=== PATIENT | female | born 1980 ===

== ENCOUNTER 2021-11-20 09:30 | Outpatient (REF) | payer OTHER, SELFPAY ==
[2021-11-20 10:34] LABS: Hematocrit 42.9 % (37.0-47.0); Hemoglobin 14.3 g/dl (12.0-16.0); Mean Corpuscular HGB Conc 33.3 g/dl (31.0-35.0); Mean Corpuscular Hemoglobin 30.5 pg (27.0-33.0); Mean Corpuscular Volume 91.5 fL (80.0-98.0); Mean Platelet Volume 10.1 fL (9.4-12.3); Platelet Count 257 X10*3/uL (160-400); Red Blood Count 4.69 X10*6/uL (4.20-5.50); Red Cell Distribution Width 12.1 % (11.0-16.0); White Blood Count 5.2 X10*3/uL (4.8-10.8)
[2021-11-20 10:55] LABS: Alanine Aminotransferase 20 U/L (0-31); Albumin Level 4.3 g/dL (3.5-5.0); Alkaline Phosphatase 63 U/L (39-117); Anion Gap 9 (12-20); Aspartate Amino Transferase 19 U/L (5-31); Bilirubin Direct 0.2 mg/dL (0.0-0.5); Bilirubin Total 0.4 mg/dL (0.0-1.0); Blood Urea Nitrogen 11 mg/dL (9-16); Calcium 9.6 mg/dL (8.4-10.2); Carbon Dioxide 30 mmol/L (22-29); Chloride 103 mmol/L (96-108); Cholesterol 211 mg/dL; Estimated Glomerular Filt Rate > 60; Glucose Random 99 mg/dL (60-115); HDL Cholesterol 52 mg/dL; LDL Cholesterol Calculated 143 mg/dl; Potassium 4.4 mmol/L (3.3-5.1); Sodium 138 mmol/L (135-145); Triglycerides 83 mg/dL
== END 2021-11-20 09:31 | disposition home or self-care (01) ==
LOC: HO.10HDL 09:30
PROVIDERS: Visit Provider Internal Medicine
DX: K21.9 Gastro-esophageal reflux disease without esophagitis (principal)
CPT/HCPCS: 36415; 80048; 80061; 80076; 85027

== ENCOUNTER 2021-12-20 13:41 | Outpatient (REF) | payer OTHER, SELFPAY ==
--- NOTE | ~2021-12-20 | MM_ITS ---
EXAMINATION: MM SCREENING DIGITAL BREAST TOMOSYNTHESIS, BILATERAL CLINICAL INFORMATION: Screening. Asymptomatic. The lifetime risk of breast cancer based on the Tyrer-Cuzick Model is 15.1%. COMPARISON: Mammography: None TECHNIQUE: Digital breast tomosynthesis is performed in both the craniocaudal and mediolateral oblique views along with computer-aided detection (CAD). Synthesized 2D images are generated from the tomosynthesis. FINDINGS: The breasts are heterogeneously dense, which may obscure small masses (ACR BI-RADS breast composition Category c). There are no significant masses, abnormal calcifications, or other abnormalities. MM/MM tomosynthesis screening BI IMPRESSION: No mammographic evidence of malignancy. ASSESSMENT: BI-RADS 1: Negative RECOMMENDATION: Routine annual mammography screening. This patient's information was entered into a reminder system with a target due date for their next mammogram.
== END 2021-12-20 13:42 | disposition home or self-care (01) ==
LOC: HO.MAMMO 13:41
PROVIDERS: Visit Provider Internal Medicine
DX: Z12.31 Encounter for screening mammogram for malignant neoplasm of breast (principal)
CPT/HCPCS: 77063; 77067

== ENCOUNTER → 2022-12-08 12:56 | Outpatient (REF) | payer OTHER, SELFPAY ==
--- NOTE | 2022-12-08 13:00 | HM_ITS ---
* Total monitoring time 2 days. * Underlying rhythm is sinus. Average ventricular rate 70/Min. Range 47 to 103/Min. * No significant ectopy, tachy or Catrachito arrhythmias. * Patient markers used in association sinus rhythm. Chest discomfort, palpitations, skipping, correlate with sinus rhythm. MTDD
== END ==
LOC: HO.CARD 12:56
PROVIDERS: PCP Internal Medicine; Visit Provider Internal Medicine
DX: R00.2 Palpitations (principal)
CPT/HCPCS: 93225

== ENCOUNTER 2023-01-01 17:15 | Outpatient (REF) | payer OTHER, SELFPAY ==
[2023-01-01 18:31] LABS: Influenza A PCR NEGATIVE (Negative); Influenza B PCR NEGATIVE (Negative); Resp Syncy Virus RNA Qual PCR NEGATIVE (Negative); SARS COV2 PCR INHOUSE NEGATIVE (Negative)
== END 2023-01-01 17:16 | disposition home or self-care (01) ==
LOC: HO.LNP 17:15
PROVIDERS: Visit Provider Nurse Practitioner Family
DX: R09.89 Other specified symptoms and signs involving the circulatory and respiratory systems (principal); Z20.822 Contact with and (suspected) exposure to COVID-19
CPT/HCPCS: 0241U

== ENCOUNTER 2023-02-10 13:59 | Outpatient (REF) | payer OTHER, SELFPAY ==
[2023-02-11 06:41] LABS: CT PCR NOT DETECTED (Not Detect.); NG PCR NOT DETECTED (Not Detect.)
[2023-02-11 12:36] LABS: BV Int Neg Control Negative (Negative); BV Int Pos Control Positive (Positive)
[2023-02-13 04:18] LABS: HPV mRNA E6/E7 rflx Not Detected (Not Detected)
== END 2023-02-10 14:00 | disposition home or self-care (01) ==
LOC: HO.LNP 13:59
PROVIDERS: PCP Internal Medicine; Visit Provider Advanced Practice Midwife
DX: Z01.419 Encounter for gynecological examination (general) (routine) without abnormal findings (principal); Z11.51 Encounter for screening for human papillomavirus (HPV); E66.3 Overweight; L68.0 Hirsutism; N92.1 Excessive and frequent menstruation with irregular cycle; Z20.2 Contact with and (suspected) exposure to infections with a predominantly sexual mode of transmission
CPT/HCPCS: 0353U; 87480; 87510; 87624; 87660; 88142

== ENCOUNTER 2023-02-27 11:12 | Outpatient (REF) | payer OTHER, SELFPAY ==
[2023-02-27 11:48] LABS: Hematocrit 44.2 % (37.0-47.0); Hemoglobin 14.9 g/dl (12.0-16.0); Mean Corpuscular HGB Conc 33.7 g/dl (31.0-35.0); Mean Corpuscular Hemoglobin 31.6 pg (27.0-33.0); Mean Corpuscular Volume 93.6 fL (80.0-98.0); Mean Platelet Volume 9.8 fL (9.4-12.3); Platelet Count 265 X10*3/uL (160-400); Red Blood Count 4.72 X10*6/uL (4.20-5.50); Red Cell Distribution Width 12.4 % (11.0-16.0); White Blood Count 6.1 X10*3/uL (4.8-10.8)
[2023-02-27 12:30] LABS: Alanine Aminotransferase 39 U/L (0-31); Albumin Level 4.5 g/dL (3.5-5.0); Alkaline Phosphatase 52 U/L (39-117); Anion Gap 12 (12-20); Aspartate Amino Transferase 23 U/L (5-31); Bilirubin Direct 0.2 mg/dL (0.0-0.5); Bilirubin Total 0.8 mg/dL (0.0-1.0); Blood Urea Nitrogen 9 mg/dL (9-16); Calcium 9.8 mg/dL (8.4-10.2); Carbon Dioxide 29 mmol/L (22-29); Chloride 105 mmol/L (96-108); Cholesterol 220 mg/dL; Estimated Glomerular Filt Rate > 60; Glucose Random 92 mg/dL (60-115); HDL Cholesterol 52 mg/dL; LDL Cholesterol Calculated 141 mg/dl; Potassium 4.3 mmol/L (3.3-5.1); Sodium 142 mmol/L (135-145); Total Protein 7.2 g/dL (6.5-8.0); Triglycerides 136 mg/dL
[2023-02-27 12:32] LABS: Appearance Urine Clear; Color Urine Dark Yellow; Glucose Urine UA Negative (Negative); Leukocyte Esterase Urine Trace (Negative); Nitrite Urine Negative (Negative); PH 6.5 (5.0-9.0); Specific Gravity - Urine >= 1.030 (1.005-1.025); UMIC TRIGGER UA YES; Urine Blood Small (1+) (Negative); Urine Ketones Trace mg/dL (Negative); Urine Protein Trace mg/dL (Neg-Trace)
[2023-02-27 12:36] LABS: Bacteria Urine Trace (None Seen); RBC Urine >20 /HPF (0-2); WBC Urine 0-5 /HPF (0-5)
[2023-02-27 12:49] LABS: Thyroid Stimulating Hormone 0.81 uIU/mL (0.32-4.0)
== END 2023-02-27 11:13 | disposition home or self-care (01) ==
LOC: HO.LAB 11:12
PROVIDERS: PCP Internal Medicine; Visit Provider Internal Medicine
DX: K21.9 Gastro-esophageal reflux disease without esophagitis (principal); F41.1 Generalized anxiety disorder; E78.00 Pure hypercholesterolemia, unspecified
CPT/HCPCS: 36415; 80048; 80061; 80076; 81001; 84443; 85027

== ENCOUNTER 2023-03-13 15:20 | Outpatient (REF) | payer OTHER, SELFPAY ==
--- NOTE | ~2023-03-13 | MM_ITS ---
EXAMINATION: MM SCREENING DIGITAL BREAST TOMOSYNTHESIS, BILATERAL CLINICAL INFORMATION: Screening. Asymptomatic. Family history breast cancer, mother. The lifetime risk of breast cancer based on the Tyrer-Cuzick Model is 15%. COMPARISON: Mammography: 12/20/2021 (baseline). TECHNIQUE: Digital breast tomosynthesis is performed in both the craniocaudal and mediolateral oblique views along with computer-aided detection (CAD). Synthesized 2D images are generated from the tomosynthesis. FINDINGS: The breasts are heterogeneously dense, which may obscure small masses (ACR BI-RADS breast composition Category c). Parenchymal pattern is similar to baseline exam and there is no developing density or architectural abnormality. No abnormal breast parenchymal calcifications. The skin contours are smooth. The axillary nodes appear normal in size. There is a left axillary node with numerous high attenuation punctate foci, either calcifications or tattoo pigment. Patient will be recalled for further evaluation with targeted ultrasound axilla. MM/MM tomosynthesis screening BI IMPRESSION: Left: -Numerous punctate high attenuation foci left axillary node, calcification versus tattoo pigment. Right: -No mammographic evidence of malignancy. ASSESSMENT: BI-RADS 0: Incomplete - Need Additional Imaging Evaluation RECOMMENDATION: 1. Targeted ultrasound left axilla. 2. Radiology department staff will contact the patient for additional imaging. This patient's information was entered into a reminder system with a target due date for their next mammogram.
== END 2023-03-13 15:21 | disposition home or self-care (01) ==
LOC: HO.MAMMO 15:20
PROVIDERS: PCP Internal Medicine; Visit Provider Advanced Practice Midwife
DX: Z12.31 Encounter for screening mammogram for malignant neoplasm of breast (principal)
CPT/HCPCS: 77063; 77067

== ENCOUNTER 2023-03-20 14:06 | Outpatient (REF) | payer OTHER, SELFPAY ==
--- NOTE | ~2023-03-20 | US_ITS ---
EXAMINATION: US DIAGNOSTIC ULTRASOUND BREAST, LEFT CLINICAL INFORMATION: Recall from screening mammography for punctate high attenuation foci left axillary node, calcification versus tattoo pigment. COMPARISON: Mammography 03/13/2023, 12/20/2021 (baseline). TECHNIQUE: Ultrasound of the upper outer left breast and axillary is performed using grayscale imaging and color Doppler without and with harmonics. FINDINGS: There is no lymphadenopathy. Axillary nodes appear normal in ultrasound architecture. Normal color flow. The upper outer left breast shows no cystic or solid mass or architectural abnormality. Patient has numerous tattoos left upper extremity. The hypoattenuation foci within otherwise unremarkable left axillary node is believed to be related to tattoo pigment. Results are discussed with the patient at time of visit. US/US breast LT limited IMPRESSION: - Normal-appearing axillary nodes. No lymphadenopathy. -There are multiple tattoos left upper extremity, left axillary node likely has tattoo pigment. ASSESSMENT: BI-RADS 2: Benign RECOMMENDATION: Routine annual mammography screening. This patient's information was entered into a reminder system with a target due date for their next mammogram.
== END 2023-03-20 14:07 | disposition home or self-care (01) ==
LOC: HO.MAMMO 14:06
PROVIDERS: Visit Provider Advanced Practice Midwife
DX: N63.32 Unspecified lump in axillary tail of the left breast (principal)
CPT/HCPCS: 76642

== ENCOUNTER 2023-04-08 16:03 | Outpatient (REF) | payer OTHER, SELFPAY | END 2023-04-08 16:04 | disposition home or self-care (01) | LOC: HO.LAB 16:03 | PROVIDERS: Visit Provider Internal Medicine | DX: R39.9 Unspecified symptoms and signs involving the genitourinary system (principal) | CPT/HCPCS: 81001; 87086; 87088; 87186 ==

== ENCOUNTER 2023-08-17 10:03 | Outpatient (AMB) | payer OTHER, SELFPAY ==
[2023-08-17 12:50] VITALS: BP 118/72; PULSE 72; O2SAT 97; BMI 29.8
--- NOTE | 2023-08-17 12:50 | MHC.OFFWIV ---
Intake Vital Signs 08/17/23 12:50 Height 5 ft 2.5 in Weight 165 lb 8 oz BMI 29.8 BP 118/72 Blood Pressure Location Rt brachial Position Sitting Pulse 72 Pulse Source Pulse Oximeter Pulse Oximetry (%) 97 Oxygen Delivery Method Room Air Intake Visit Reasons: EST/ongoing cough/[phone] Intake Note: pt is here for c/o ongoing cough, also pt has a sore throat Patient Tobacco Use Status: Current everyday Tobacco user Allergies hydrocodone [From VICODIN] Allergy (Unknown, Verified 08/17/23 13:27) NAUSEA & VOMITING quetiapine Adverse Reaction (Intermediate, Verified 08/17/23 13:27) sucide attempt Vicodin Allergy (Unknown, Uncoded 08/17/23 13:27) vomiting,nausea Medication List - Last Reconciled 08/17/23 by Sanjay Zavala MD budesonide-formoterol 80-4.5 mcg/actuation 2 puffs PO BID clonazepam 0.5 mg PO BEDTIME hydroxyzine HCl 25 mg PO DAILY PRN nicotine (polacrilex) (Nicorette) 2 mg buccal Q2H omeprazole 20 mg PO DAILY paroxetine HCl 10 mg PO QAM permethrin 5% 1 appl topical Q14D 2 doses Do you need a note to return to daycare/school/sports/work: Yes HPI EST/ongoing cough/[phone] HPI Details Patient presents for a sick visit. Reporting symptoms of sinus congestion, sore throat and difficulty swallowing. Low-grade fever. No family member is sick. No recent travel. Patient reports symptoms of malaise and fatigue. [facility] Medical History Panic attacks Anxiety Depression GERD (gastroesophageal reflux disease) Surgical History No history of previous surgery Family History Mother History of breast lump removal Breast cancer Father No problems noted. 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 Hearing needs: No Vision needs: Yes (glasses) Physical Exam Vital Signs: Last Vital Signs Pulse 72 08/17/23 12:50 BP 118/72 08/17/23 12:50 Pulse Ox 97 08/17/23 12:50 Oxygen Delivery Method Room Air 08/17/23 12:50 BMI result Body Mass Index 29.8 Const General: cooperative and healthy appearing Nutritional Appearance: well nourished Orientation/consciousness: patient oriented x3 Limitations: no limitations HEENT Head: Yes normal to inspection Eyes General: appearance normal, both eyes and all related structures Neck Neck: Yes normal visual inspection Chest Chest palpation & inspection: normal palpation of entire chest wall Resp Effort & Inspection: normal respiratory effort Neuro General: patient oriented x3 Assessment & Plan Assessment & Plan (1) URI (upper respiratory infection): Code(s): J06.9 - Acute upper respiratory infection, unspecified Plan: Antibiotics, prednisone and inhalers to be used. Patient already has the inhalers at home. Increase fluid intake. Coding Level of Care Code Est Pt Level 3 (89479) Diagnoses URI (upper respiratory infection) J06.9
== END 2023-08-17 13:50 | disposition home or self-care (01) ==
PROVIDERS: PCP Internal Medicine; Visit Provider Internal Medicine
DX: J06.9 Acute upper respiratory infection, unspecified (principal)
CPT/HCPCS: 99213

== ENCOUNTER 2024-03-15 14:43 | Outpatient (AMB) | payer OTHER, SELFPAY ==
--- NOTE | 2024-03-15 14:55 | MHC.PC.OV ---
Vital Signs 03/15/24 14:57 Height 5 ft 2.5 in Weight 166 lb 6 oz BMI 29.9 BP 132/66 Blood Pressure Location Lt brachial Position Sitting Pulse 60 Pulse Source Pulse Oximeter Pulse Oximetry (%) 100 Oxygen Delivery Method Room Air Intake Visit Reasons: Depression, BRENDAN f/u Intake Note: Patient is here to follow up on Depression, BRENDAN. Outcomes Specialist Required: No Makeup Editor: Not Required per policy Accompanied by: Self / Same As Patient Allergies hydrocodone [From VICODIN] Allergy (Unknown, Verified 03/15/24 14:57) NAUSEA & VOMITING quetiapine Adverse Reaction (Intermediate, Verified 03/15/24 14:57) sucide attempt Vicodin Allergy (Unknown, Uncoded 03/15/24 14:57) vomiting,nausea Tobacco use date assessed: 03/15/24 Dental Screening Dental Screen Date: 03/15/24 Did you have a dental visit in the last 12 months?: Yes Did you have a dental problem in the last 6 months where you did not have access to dental care?: No Was dental information given to patient?: Patient has dentist HPI Depression, BRENDAN f/u HPI Details 44-year-old female presents to the office to reestablish her care. Patient lost her health insurance and as a result, has been a long gap in her treatment. She was feeling better and therefore had tapered her paroxetine dosage to 10 mg once a day. Now patient is feeling depressed, difficulty falling asleep at night, excessive fatigue. She is agreed to see a therapist. Patient also has a regular menstruation. She is having hair on her chin. Not exercising or following any particular diet. [facility] Medical History (Updated 03/15/24 @ 15:48 by Sanjay Zavala MD) Tobacco use disorder Panic attacks Anxiety Depression GERD (gastroesophageal reflux disease) Surgical History No history of previous surgery Family History Mother History of breast lump removal Breast cancer Father No problems noted. 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 1. Little interest or pleasure in doing things: nearly every day 2. Feeling down, depressed, or hopeless: nearly every day 3. Trouble falling or staying asleep, or sleeping too much: nearly every day 4. Feeling tired or having little energy: nearly every day 5. Poor appetite or overeating: more than half the days 6. Feeling bad about yourself - or that you are a failure or have let yourself or your family down: nearly every day 7. Trouble concentrating on things, such as reading the newspaper or watching television: nearly every day 8. Moving or speaking so slowly that other people could have noticed. Or the opposite - being so fidgety or restless that you have been moving around a lot more than usual: not at all 9. Thoughts that you would be better off or of hurting yourself in some way: more than half the days Total score: 22 Depression Screening Interpretation: Positive Depression Screening Follow-up: Existing condition, New Medication prescribed and Community Mental Health Worker F/U Depression Screening Done: Yes Source: Developed by Drs. Eliseo Castro, Karen Wallace, Sivakumar Marques and colleagues, with an educational alan from [employer]. Thrive Questionnaire Date Thrive assessed: 03/15/24 I am a: Patient What is your living situation today?: I have a steady place to live Within the past 12 months, did the food you bought not last and you didn't have the money to get more?: Never true Within the past 12 months, did you worry whether your food would run out before you got money to buy more?: Never true Do you have trouble paying for medicines?: No Do you have trouble getting transportation to medical appointments?: No Do you have trouble paying your heating and electricity bill?: No Do you have trouble taking care of your child, family member or friend?: No Do you have trouble with day-to-day activities such as bathing, preparing meals, shopping, managing finances, etc.?: No Are you currently unemployed and looking for a job?: No Are you interested in more education?: No Currently or been in a relationship where the following occur: no concerns reported THRIVE Score: 0 AUDIT C Alcohol Use Questionnaire (AUDIT-C) 1. How often do you have a drink containing alcohol?: Monthly or less 2. How many drinks containing alcohol do you have on a typical day when you are drinking?: 1 or 2 Total Score: 1 BRENDAN-7 AMB Questionnaire BRENDAN-7 Date BRENDAN - 7 assessed: 03/15/24 Feeling nervous, anxious, or on edge: 3 = Nearly every day Not being able to stop or control worryin = Nearly every day Worrying too much about different things: 3 = Nearly every day Trouble relaxin = Nearly every day Being so restless that it is hard to sit still: 3 = Nearly every day Becoming easily annoyed or irritable: 1 = Several days Feeling afraid as if something awful might happen: 3 = Nearly every day Total BRENDAN-7 score (0-4 normal; 5-9 mild; 10-14 moderate; 15-21 severe): 19 Source: Developed by Drs. Eliseo Castro, Karen Wallace, Sivakumar Marques and colleagues, with an educational alan from [employer]. Physical exam (Primary Care) Vital Signs: Last Vital Signs Pulse 60 03/15/24 14:57 BP 132/66 03/15/24 14:57 Pulse Ox 100 03/15/24 14:57 Oxygen Delivery Method Room Air 03/15/24 14:57 Next steps: Blood pressure is in range. BMI result Body Mass Index 29.9 Tobacco/Smoking Status: Tobacco use Status Tobacco use date assessed 03/15/24 03/15/24 15:05 Patient Tobacco Use Status Current everyday Tobacco 03/15/24 15:05 Tobacco use type Cigarette 03/15/24 15:05 e-Cigarette/Vaping Use Never Used 03/15/24 15:05 Are you ready to quit: No PHQ-9: PHQ-9 Score PHQ-9: Total score 22 03/15/24 15:05 Depression Screening Interpretation: Positive Depression Screening Follow-up: Existing condition, New Medication prescribed and Community Mental Health Worker F/U Thrive Assessment: Date of Thrive Assessment Date Thrive assessed 03/15/24 03/15/24 15:05 Currently or been in a relationship where the following occur: no concerns reported Const General: cooperative and healthy appearing Nutritional Appearance: well nourished Orientation/consciousness: patient oriented x3 Limitations: no limitations HENMT Head: Yes normal to inspection Eyes General: appearance normal, both eyes and all related structures Neck Neck: Yes normal visual inspection Chest Chest palpation & inspection: normal palpation of entire chest wall Resp Effort & Inspection: normal respiratory effort Skin Other: Face: Facial hair present, especially near the chin. Neuro General: patient oriented x3 Assessment and Plan Assessment & Plan (1) Depression: Code(s): F32.A - Depression, unspecified Qualifiers: Depression Type: other depression Qualified Code(s): F32.89 - Other specified depressive episodes Plan: Paxil is increased to 20 mg once a day. Clonazepam has been added once a day. Patient will be reassessed in 4 weeks. (2) Excessive menstruation with irregular cycle: Code(s): N92.1 - Excessive and frequent menstruation with irregular cycle Plan: In view of her hirsuite symptoms, irregular menstruation PCOS needs to be ruled out. A inside sales consultant appointment has been scheduled. (3) Tobacco use disorder: Code(s): F17.200 - Nicotine dependence, unspecified, uncomplicated Plan: Patient was encouraged to quit. Medications: Refilled clonazepam administer 30 minutes before bedtime 0.5 mg PO BEDTIME 30 tabs 0RF paroxetine HCl 10 mg PO QAM 90 tabs 0RF Coding Level of Care Code Est Pt Level 4 (80796) Complex EM visit Add On G2211 Diagnoses Other depression F32.89 Depression Type: other depression Excessive menstruation with irregular cycle N92.1 Tobacco use disorder F17.200
[2024-03-15 14:57] VITALS: BP 132/66; PULSE 60; O2SAT 100; BMI 29.9
== END 2024-03-15 15:49 | disposition home or self-care (01) ==
PROVIDERS: PCP Internal Medicine; Visit Provider Internal Medicine
DX: F32.89 Other specified depressive episodes (principal); N92.1 Excessive and frequent menstruation with irregular cycle; F17.200 Nicotine dependence, unspecified, uncomplicated
CPT/HCPCS: 99214; G2211

== ENCOUNTER 2024-03-18 15:25 | Outpatient (REF) | payer OTHER, SELFPAY ==
--- NOTE | ~2024-03-18 | MM_ITS ---
EXAMINATION: MM SCREENING DIGITAL BREAST TOMOSYNTHESIS, BILATERAL CLINICAL INFORMATION: Screening. Asymptomatic. COMPARISON: Mammography: This study is compared with prior exams dating back to 2021. TECHNIQUE: Digital breast tomosynthesis is performed in both the craniocaudal and mediolateral oblique views along with computer-aided detection (CAD). Synthesized 2D images are generated from the tomosynthesis. FINDINGS: The breasts are heterogeneously dense, which may obscure small masses (ACR BI-RADS breast composition Category c). There are no significant masses, abnormal calcifications, or other abnormalities. MM/MM tomosynthesis screening BI IMPRESSION: No mammographic evidence of malignancy. ASSESSMENT: BI-RADS BI-RADS 1 - Negative RECOMMENDATION: Routine annual mammography screening. 1 year F/U This examination should not preclude the clinical evaluation of a suspicious palpable abnormality. This patient's information was entered into a reminder system with a target due date for their next mammogram.
== END 2024-03-18 15:26 | disposition home or self-care (01) ==
LOC: HO.MAMMO 15:25
PROVIDERS: PCP Internal Medicine; Visit Provider Internal Medicine
DX: Z12.31 Encounter for screening mammogram for malignant neoplasm of breast (principal)
CPT/HCPCS: 77063; 77067

== ENCOUNTER → 2024-03-18 15:30 | Outpatient (BNV) | payer OTHER, SELFPAY | PROVIDERS: PCP Internal Medicine; Visit Provider Radiology Diagnostic Radiology | DX: Z12.31 Encounter for screening mammogram for malignant neoplasm of breast (principal) | CPT/HCPCS: 77063; 77067 ==

== ENCOUNTER 2024-05-02 09:55 | Outpatient (REF) | payer OTHER, SELFPAY | END 2024-05-02 09:56 | disposition home or self-care (01) | LOC: HO.LNP 09:55 | PROVIDERS: PCP Internal Medicine; Visit Provider Obstetrics & Gynecology | DX: N93.9 Abnormal uterine and vaginal bleeding, unspecified (principal); L68.0 Hirsutism | CPT/HCPCS: 81002; 81025 ==

== ENCOUNTER 2024-05-02 09:55 | Outpatient (AMB) | payer OTHER, SELFPAY ==
--- NOTE | 2024-05-02 10:04 | A.OFFVIS_ITS ---
Vital Signs 05/02/24 10:05 Height 5 ft 2.5 in Weight 159 lb BMI 28.6 Intake Visit Reasons: frequent menses w/irregular cycle/Referral Shearing Machine Operator Required: No Information Interpreted: non-clinical & clinical Differential Tester: Differential Tester Present (Leana TEMPLETON) Accompanied by: Self / Same As Patient Allergies hydrocodone [From VICODIN] Allergy (Unknown, Verified 05/02/24 10:10) NAUSEA & VOMITING quetiapine Adverse Reaction (Intermediate, Verified 05/02/24 10:10) sucide attempt Vicodin Allergy (Unknown, Uncoded 05/02/24 10:10) vomiting,nausea Is last menstrual period known: Yes Last menstrual period: 04/12/24 HPI Comments Details: The patient is presenting c/o irregular bleeding associated with passage of blood clots and abdominal cramping. it started few months ago and is getting worse no other associated symptoms. Last co testing was negative in 02/24 Last mammogram was in 03/28 was BI-RADS 1 [facility] Medical History Hx of Tobacco use disorder Panic attacks Anxiety Depression GERD (gastroesophageal reflux disease) Surgical History No history of previous surgery Family History Mother History of breast lump removal Breast cancer Father No problems noted. 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 Hearing needs: No Vision needs: Yes (glasses) Female Reproductive History Menstrual Date of last menstrual period: 04/12/24 Total pregnancies: 2 Full term: 1 Number of Living Children: 1 Review of Systems Const All systems reviewed & are unremarkable except as noted in HPI and below Card Reports as per HPI Resp Reports as per HPI GI Reports as per HPI and Reports no additional complaints Reports as per HPI Physical Exam Vital Signs: BMI result Body Mass Index 28.6 Const General: cooperative, healthy appearing and comfortable Chest Chest palpation & inspection: normal inspection of the chest and normal palpation of entire chest wall Breast/axilla inspection: normal inspection of the breasts and normal inspection of the axillae Breast/axilla palpation: normal palpation of the breasts, normal palpation of the axillae and no axillary lymphadenopathy Resp Effort & Inspection: normal respiratory effort Auscultation: clear to auscultation bilaterally Percussion: percussion normal Cardio Palpation: normal PMI Rate: regular rate Rhythm: regular rhythm Heart sounds: no murmurs and no rubs Peripheral pulses: Peripheral pulses 2+ throughout GI Inspection: Yes normal to inspection Palpation (GI): Soft to palpation, nontender, no guarding, not rigid and No hepatosplenomegaly present Percussion: Yes normal to percussion Auscultation: normal bowel sounds Rectal Exam - Female: deferred General: Yes bladder normal to palpation External Female Exam: No lesion Speculum Exam - Vagina: normal appearance of the vagina, normal palpation, normal vaginal discharge and not erythematous Speculum Exam - Cervix: normal appearance of the cervix and normal palpation Bimanual exam- vagina & uterus: normal bimanual exam, normal palpation, uterine size normal, bladder normal to palpation, consistency normal and normal palpation Bimanual Exam- Adnexa, other: normal adnexae, no masses and no tenderness Assessment & Plan Assessment & Plan (1) Abnormal uterine bleeding (AUB): Comment: With hirsutism Code(s): N93.9 - Abnormal uterine and vaginal bleeding, unspecified Category: Medical Plan: GC and chlamydia taken CBC, TSH, prolactin, 17 hydroxyprogesterone, total and free testosterone HCG, and pelvic ultrasound ordered. Discussed with the patient the different causes of abnormal bleeding including thyroid disorders, uterine and ovarian pathology, endometrial hyperplasia, carcinoma and other potential causes. Discussed with the patient the work up including CBC (to r/o anemia), TSH, prolactin, pelvic Ultrasound, endometrial biopsy to r/o endometrial pathology. All questions answered and the patient verbalized understanding. Instructed the patient to schedule an appointment for an endometrial biopsy in 2 weeks. Orders: Orders HCG Quantitative Today N93.9 - Abnormal uterine and vaginal bleeding, unspecified Complete Blood Count no Diff Today N93.9 - Abnormal uterine and vaginal bleeding, unspecified US pelvic and transvaginal Today N93.9 - Abnormal uterine and vaginal bleeding, unspecified Testosterone, Free/Total Today L68.0 - Hirsutism Prolactin Today N93.9 - Abnormal uterine and vaginal bleeding, unspecified TSH reflex Free T4 Today N93.9 - Abnormal uterine and vaginal bleeding, unspecified 17 Hydroxyprogesterone Today L68.0 - Hirsutism Coding Level of Care Code Est Pt Level 3 (91839) Diagnoses Abnormal uterine bleeding (AUB) N93.9
[2024-05-02 10:05] VITALS: BMI 28.6
== END 2024-05-02 11:01 | disposition home or self-care (01) ==
PROVIDERS: PCP Internal Medicine; Visit Provider Obstetrics & Gynecology
DX: N93.9 Abnormal uterine and vaginal bleeding, unspecified (principal); Z32.02 Encounter for pregnancy test, result negative
CPT/HCPCS: 99213

== ENCOUNTER 2024-05-02 10:47 | Outpatient (REF) | payer OTHER, SELFPAY ==
[2024-05-02 11:19] LABS: Hematocrit 42.2 % (37.0-47.0); Hemoglobin 14.5 g/dl (12.0-16.0); Mean Corpuscular HGB Conc 34.4 g/dl (31.0-35.0); Mean Corpuscular Hemoglobin 31.4 pg (27.0-33.0); Mean Corpuscular Volume 91.3 fL (80.0-98.0); Mean Platelet Volume 9.6 fL (9.4-12.3); Platelet Count 267 X10*3/uL (160-400); Red Blood Count 4.62 X10*6/uL (4.20-5.50); Red Cell Distribution Width 12.6 % (11.0-16.0); White Blood Count 6.5 X10*3/uL (4.8-10.8)
[2024-05-02 12:44] LABS: HCG Quantitative < 2 mIU/mL; TSH reflex Free T4 1.51 uIU/mL (0.32-4.0)
[2024-05-03 05:25] LABS: CT PCR NOT DETECTED (Not Detect.); NG PCR NOT DETECTED (Not Detect.)
[2024-05-03 14:12] LABS: Prolactin 11.8 ng/mL
[2024-05-07 20:39] LABS: Testosterone, Free 2.8 pg/mL (0.1-6.4); Testosterone, Total 23 ng/dL (2-45)
== END 2024-05-02 10:48 | disposition home or self-care (01) ==
LOC: HO.LAB 10:47
PROVIDERS: PCP Internal Medicine; Visit Provider Obstetrics & Gynecology
DX: N93.9 Abnormal uterine and vaginal bleeding, unspecified (principal); L68.0 Hirsutism; R82.79 Other abnormal findings on microbiological examination of urine
CPT/HCPCS: 36415; 83498; 84146; 84402; 84403; 84443; 84702; 85027; 87086; 87088; 87186; 87491; 87591

== ENCOUNTER 2024-05-06 13:14 | Outpatient (REF) | payer OTHER, SELFPAY ==
--- NOTE | ~2024-05-06 | US_ITS ---
EXAMINATION: US PELVIS CLINICAL INFORMATION: Abnormal bleeding. COMPARISON: None available. TECHNIQUE: Ultrasound of the pelvis is performed using both transabdominal and transvaginal transducers along with Doppler. Transvaginal imaging is performed due to inadequate visualization transabdominally. FINDINGS: The uterus is anteverted and measures 9.1 x 6.0 x 6.2 cm. Double wall endometrial thickness is 19 mm. Possible endometrial polyp measures 1.7 x 0.6 x 0.8 cm. Nabothian cysts. No significant free fluid. Right ovary measures 3.0 x 2.4 x 1.8 cm, volume 6.6 mL. Left ovary measures 3.4 x 1.4 x 2.3 cm, volume 5.6 mL. Bilateral ovaries are unremarkable. US/US pelvic and transvaginal IMPRESSION: Possible endometrial polyp measures 1.7 cm. Double wall endometrial thickness is 19 mm. Gynecologic consultation and correlation with clinical exam recommended to determine further management including possible biopsy.
== END 2024-05-06 13:15 | disposition home or self-care (01) ==
LOC: HO.US 13:14
PROVIDERS: PCP Internal Medicine; Visit Provider Obstetrics & Gynecology
DX: N93.9 Abnormal uterine and vaginal bleeding, unspecified (principal)
CPT/HCPCS: 76830; 76856

== ENCOUNTER 2024-05-11 15:32 | Outpatient (AMB) | payer OTHER, SELFPAY ==
[2024-05-11 15:40] VITALS: BP 116/70; PULSE 61; O2SAT 98; BMI 29.2
--- NOTE | 2024-05-11 15:40 | A.OFFPC_ITS ---
Vital Signs 05/11/24 15:40 Height 5 ft 2.5 in Weight 162 lb 0.2 oz BMI 29.2 BP 116/70 Blood Pressure Location Lt brachial Position Sitting Pulse 61 Pulse Source Pulse Oximeter Pulse Oximetry (%) 98 Oxygen Delivery Method Room Air Intake Visit Reasons: 1mof\u Fashion Buyer Required: No Allergies hydrocodone [From VICODIN] Allergy (Unknown, Verified 05/17/24 11:03) NAUSEA & VOMITING quetiapine Adverse Reaction (Intermediate, Verified 05/17/24 11:03) sucide attempt Vicodin Allergy (Unknown, Uncoded 05/17/24 11:03) vomiting,nausea Medication List - Last Reconciled 05/17/24 by Sanjay Zavala MD aripiprazole (Abilify) 2 mg PO BEDTIME budesonide-formoterol 80-4.5 mcg/actuation 2 puffs PO BID clonazepam 0.5 mg PO BEDTIME omeprazole 20 mg PO DAILY paroxetine HCl 20 mg PO DAILY Tobacco use date assessed: 03/15/24 Dental Screening Dental Screen Date: 03/15/24 Did you have a dental visit in the last 12 months?: Yes Did you have a dental problem in the last 6 months where you did not have access to dental care?: No Was dental information given to patient?: Patient has dentist HPI 1mof\u HPI Details 44-year-old female presents to the [facility] for a follow-up visit. Patient is had some relief with the Wellbutrin. Her anxiety symptoms are a little better. However she continues to be distracted, crying spells are still present. She is being evicted from her apartment and has missed out on a promotion. Patient has dogs and therefore is not able to rent apartments easily. She is not exercising or following any particular diet. [facility] Medical History Hx of Tobacco use disorder Panic attacks Anxiety Depression GERD (gastroesophageal reflux disease) Surgical History No history of previous surgery Family History Mother History of breast lump removal Breast cancer Father No problems noted. 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 How often do you have a drink containing alcohol?: Monthly or less 2. How many drinks containing alcohol do you have on a typical day when you are drinking?: 1 or 2 Total Score: 1 BRENDAN-7 AMB Questionnaire BRENDAN-7 Date BRENDAN - 7 assessed: 03/15/24 Source: Developed by Drs. Eliseo Castro, Karen Wallace, Sivakumar Marques and colleagues, with an educational alan from [employer]. Physical exam (Primary Care) Vital Signs: Last Vital Signs Pulse 61 05/11/24 15:40 BP 116/70 05/11/24 15:40 Pulse Ox 98 05/11/24 15:40 Oxygen Delivery Method Room Air 05/11/24 15:40 BMI result Body Mass Index 29.2 Tobacco/Smoking Status: Tobacco use Status Tobacco use date assessed 03/15/24 05/11/24 15:42 Patient Tobacco Use Status Current everyday Tobacco 05/11/24 15:42 Tobacco use type Cigarette 05/11/24 15:42 e-Cigarette/Vaping Use Never Used 05/11/24 15:42 Are you ready to quit: No Tobacco cessation counseling provided: No Tobacco use cessation counseling not done medical reason: other (Patient does not want to quit smoking.) Thrive Assessment: Date of Thrive Assessment Date Thrive assessed 03/15/24 05/11/24 15:42 Const General: cooperative and healthy appearing Nutritional Appearance: well nourished Orientation/consciousness: patient oriented x3 Limitations: no limitations HENMT Head: Yes normal to inspection Eyes General: appearance normal, both eyes and all related structures Neck Neck: Yes normal visual inspection Chest Chest palpation & inspection: normal palpation of entire chest wall Resp Effort & Inspection: normal respiratory effort Neuro General: patient oriented x3 Assessment and Plan Assessment & Plan (1) Generalized anxiety disorder: Code(s): F41.1 - Generalized anxiety disorder Plan: Abilify added to the regimen. Psychiatry outpatient consultation scheduled. Orders: Referrals Psychiatry Outpatient Consultation Service F41.1 - Generalized anxiety disorder Medications: New aripiprazole (Abilify) 2 mg PO BEDTIME 30 tabs 1RF Refilled clonazepam administer 30 minutes before bedtime 0.5 mg PO BEDTIME 30 tabs 0RF Coding Level of Care Code Est Pt Level 4 (07296) Complex EM visit Add On G2211 Diagnoses Generalized anxiety disorder F41.1
== END 2024-05-11 16:25 | disposition home or self-care (01) ==
PROVIDERS: PCP Internal Medicine; Visit Provider Internal Medicine
DX: F41.1 Generalized anxiety disorder (principal)
CPT/HCPCS: 99214

== ENCOUNTER 2024-05-16 14:37 | Outpatient (AMB) | payer OTHER, SELFPAY ==
--- NOTE | 2024-05-16 14:39 | A.OFFVIS_ITS ---
Vital Signs 05/16/24 14:48 Height 5 ft 2.5 in Weight 160 lb 14.999 oz BMI 29.0 Intake Visit Reasons: Ultrasound results/EMB Supervisor Carding Required: No Information Interpreted: non-clinical & clinical Telecommunications Network Engineer: Telecommunications Network Engineer Present Accompanied by: Mother Allergies hydrocodone [From VICODIN] Allergy (Unknown, Verified 05/16/24 14:49) NAUSEA & VOMITING quetiapine Adverse Reaction (Intermediate, Verified 05/16/24 14:49) sucide attempt Vicodin Allergy (Unknown, Uncoded 05/16/24 14:49) vomiting,nausea Is last menstrual period known: Yes Last menstrual period: 05/10/24 Post menopausal: No Patient : No Do you need a note to return to daycare/school/sports/work: Yes (for surgery on thursday) HPI Comments Details: Presenting for follow-up possible EMB [facility] Medical History Hx of Tobacco use disorder Panic attacks Anxiety Depression GERD (gastroesophageal reflux disease) Surgical History No history of previous surgery Family History Mother History of breast lump removal Breast cancer Father No problems noted. 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 Hearing needs: No Vision needs: Yes (glasses) Female Reproductive History Menstrual Date of last menstrual period: 05/10/24 Total pregnancies: 2 Full term: 2 Review of Systems Card Reports as per HPI and Reports no additional complaints Resp Reports as per HPI and Reports no additional complaints GI Reports as per HPI and Reports no additional complaints Reports as per HPI Physical Exam Const General: cooperative, healthy appearing and comfortable Resp Effort & Inspection: normal respiratory effort Auscultation: clear to auscultation bilaterally Percussion: percussion normal Cardio Palpation: normal PMI Rate: regular rate Rhythm: regular rhythm Heart sounds: no murmurs and no rubs Peripheral pulses: Peripheral pulses 2+ throughout GI Inspection: Yes normal to inspection Palpation (GI): Soft to palpation, nontender, no guarding, not rigid and No hepatosplenomegaly present Percussion: Yes normal to percussion Auscultation: normal bowel sounds Rectal Exam - Female: deferred Assessment & Plan Assessment & Plan (1) Abnormal uterine bleeding (AUB): Comment: With hirsutism Code(s): N93.9 - Abnormal uterine and vaginal bleeding, unspecified Category: Medical Plan: Discussed with the patient the options of treatment include endometrial biopsy versus hysteroscopy D&C possible polypectomy/myomectomy. All the pros and cons risks and benefits of each approach were discussed with the patient, endometrial biopsy being less invasive, office procedure with less sensitivity and inability diagnose a polyp and removal versus hysteroscopy done under anesthesia more invasive more sensitive to endometrial cancer and possibility of diagnosing and endometrial polyp with the possibility of polypectomy. All questions were answered pt verbalized understanding and decided to proceed with hysteroscopy D&C possible polypectomy/myomectomy. Discussed with the patient the procedure , all benefits and risks including but not limited to inability to complete the procedure , insufficient endometrial tissue for a complete evaluation of the endometrial cavity , bleeding, infection, possible need for blood transfusion with all its risk ( HIV,syphilis, Hepatitis, anaphylaxis shock, others..), injury to bladder, rectum, possible need for laparoscopy/laparotomy or hysterectomy. The patient verbalized understanding and signed the consent. Instructions given the patient to stay NPO after midnight the day prior to the procedure and to take only the specific medication (s) discussed the morning of the surgical procedure and to schedule a 2 week postoperative appointment Coding Level of Care Code Est Pt Level 3 (66813) Diagnoses Abnormal uterine bleeding (AUB) N93.9
[2024-05-16 14:48] VITALS: BMI 29.0
== END 2024-05-16 15:03 | disposition home or self-care (01) ==
LOC: HO.HWS 14:37
PROVIDERS: PCP Internal Medicine; Visit Provider Obstetrics & Gynecology
DX: N93.9 Abnormal uterine and vaginal bleeding, unspecified (principal)
CPT/HCPCS: 99213

== ENCOUNTER → 2024-05-16 14:37 | Outpatient (BNVA) | payer OTHER, SELFPAY | PROVIDERS: PCP Internal Medicine; Visit Provider Obstetrics & Gynecology ==

== ENCOUNTER 2024-05-20 10:06 | Day surgery (SDC) | payer OTHER, SELFPAY ==
--- NOTE | 2024-05-18 14:06 | HO.ANESPROP2 ---
Documented by User: Marisela Hdz NP 05/18/24 14:06 HPI - Anesthesia Eval Consult details Narrative: 44yo F for D&C Hysteroscopy,with possible myomectomy,possible polypectomy, PMFSH Active Problems Active Problems: All Active Problems Abnormal uterine bleeding (AUB) (Acute) Tobacco use disorder (Acute) Scabies exposure (Acute) Depression (Acute) Screen for sexually transmitted diseases (Acute) Cervical cancer screening (Acute) Breast cancer screening (Acute) Women's annual routine gynecological examination (Acute) Excessive menstruation with irregular cycle (Acute) Hirsutism (Acute) Overweight (BMI 25.0-29.9) (Acute) URI (upper respiratory infection) (Acute) Palpitations (Acute) Generalized anxiety disorder (Acute) GERD (gastroesophageal reflux disease) (Acute) Past Medical History Medical History Hx of Tobacco use disorder Panic attacks Anxiety Depression GERD (gastroesophageal reflux disease) Family History Family History Mother History of breast lump removal Breast cancer Father No problems noted. Other Mental health disorder Substance use disorder Surgical History Surgical History Hx of wisdom tooth extraction No history of previous surgery Social History Social History Housing: House Alcohol intake: current Alcohol intake frequency: holidays/special occasions only Patient Tobacco Use Status: Current everyday Tobacco user Tobacco use type: Cigarette Cigarette Packs Per Day: 0.5 Cigarettes Per Day: 10 e-Cigarette/Vaping Use: Never Used Second Hand Smoke Exposure: Yes Use of substances other than those prescribed or required for medical reasons: Yes Substance Use Type Other:: Smoking Substance Use Frequency: Daily Are you DNR?: No Advance Directives: No Advance Directives Information Provided: Yes Recently lost weight without trying: No Nutrition Risks: No Nutritional Risk service: No Current occupational status: employed 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 Hearing needs: No Vision needs: Yes (glasses) Meds Allergies Allergy/AdvReac Type Severity Reaction Status Date / Time hydrocodone [From VICODIN] Allergy Unknown NAUSEA & Verified 05/20/24 11:46 VOMITING quetiapine AdvReac Intermediate sucide Verified 05/20/24 11:46 attempt Vicodin Allergy Unknown vomiting,na Uncoded 05/20/24 11:46 usea Assessment and Plan Assessment Anesthesia Assessment: Chart Reviewed Documented by User: Kathia Villegas MD 05/20/24 12:34 PMFSH Past Medical History Medical History Hx of Tobacco use disorder Panic attacks Anxiety Depression GERD (gastroesophageal reflux disease) Family History Family History Mother History of breast lump removal Breast cancer Father No problems noted. Other Mental health disorder Substance use disorder Surgical History Surgical History Hx of wisdom tooth extraction No history of previous surgery History of Problems with Anesthesia: No Social History Social History Housing: House Alcohol intake: current Alcohol intake frequency: holidays/special occasions only Patient Tobacco Use Status: Current everyday Tobacco user Tobacco use type: Cigarette Cigarette Packs Per Day: 0.5 Cigarettes Per Day: 10 e-Cigarette/Vaping Use: Never Used Second Hand Smoke Exposure: Yes Use of substances other than those prescribed or required for medical reasons: Yes Substance Use Type Other:: Smoking Substance Use Frequency: Daily Are you DNR?: No Advance Directives: No Advance Directives Information Provided: Yes Recently lost weight without trying: No Nutrition Risks: No Nutritional Risk service: No Current occupational status: employed 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 Hearing needs: No Vision needs: Yes (glasses) Meds Allergies Allergy/AdvReac Type Severity Reaction Status Date / Time hydrocodone [From VICODIN] Allergy Unknown NAUSEA & Verified 05/20/24 11:46 VOMITING quetiapine AdvReac Intermediate sucide Verified 05/20/24 11:46 attempt Vicodin Allergy Unknown vomiting,na Uncoded 05/20/24 11:46 usea Exam Airway Mallampati Class: II TM Dist: >3cm Neck ROM: Full Loose/Missing/Broken Teeth: No Heart: RRR Lungs: CTA Assessment and Plan Assessment Anesthesia Assessment: Anesthesia Plan Discussed Final Anesthetic Review History of Problems with Anesthesia: No NPO: Yes ASA Class: II Final Preanesthetic Review: Meds/Allgs Chart Reviewed, Consent Obtained/Reviewed and Anes Risks/Benef Reviewed Patient Risk: Low Procedure Risk: Low Anesthetic Plan Anesthetic Plan: GA Disposition: Standard PACU
[2024-05-20 11:08] LABS: UPreg QC Valid YES; Urine Pregnancy NEGATIVE (NEGATIVE)
[2024-05-20 11:35] VITALS: BMI 31.2
[2024-05-20 11:47] VITALS: BP 100/62; PULSE 61; RESP 16; TEMP 36.1; O2SAT 95
[2024-05-20] MEDS: Lactated Ringers 1,000 ML 100 ML IVCONT (11:48)
--- NOTE | 2024-05-20 12:47 | MHC.SHP ---
Pre-Procedural Eval Section A - 24 Hr Update-Section A only Date of Service: 05/20/24 The patient is an INPATIENT: No Changes since office visit: No Cold of Flu in the past 2 weeks, No New Medical Problems, No Changes in Medication and No Patient answered all questions The patient has been examined within 24 hours of the surgical procedure. The History & Physical has been completed within 30 days and I have reviewed it.: Yes Section B - Complete if H&P > 30 days Chief Complaint: Abnormal uterine and vaginal bleeding, Allergies: Allergies Allergy/AdvReac Type Severity Reaction Status Date / Time hydrocodone [From VICODIN] Allergy Unknown NAUSEA & Verified 05/20/24 11:46 VOMITING quetiapine AdvReac Intermediate sucide Verified 05/20/24 11:46 attempt Vicodin Allergy Unknown vomiting,na Uncoded 05/20/24 11:46 usea Plan Diagnosis/Plan: Unchanged I have reviewed the history and physical and performed a pertinent physical examination on my patient. No changes have occurred unless specified. Time Spent With Patient Time: Total time managing care of this patient today ____ minutes.
--- NOTE | 2024-05-20 14:07 | P.OP_ITS ---
Operative Note Operative Note Date of Service: 05/20/24 Narrative: Preop Diagnosis: Abnormal uterine bleeding, Endometrial polyp by US Operation: Diagnostic Hysteroscopy, Dilataion & Curettage and polypectomy Post Op Diagnosis: Endometrial Polyp QBL: Minimal Anesthesia: GLMA Surgeon: Saulo Melgar MD Retail Financial Analyst: None Complication: None Pathology: Endometrial Scrapings, Endometrial polyp Procedure: The patient was put in the dorsal lithotomy position, scrubbed, and draped in the usual manner. A sterile speculum was inserted in the patient's vagina. The anterior lip of the cervix was grasped with a single tooth tenaculum. The cervix was dilated up to 5 mm, then the scope was inserted in the patient's uterus. Inspection revealed endometrial polyp. The Myosure Reach device was used; it was introduced through the operative channel and polypectomy done with no complications. The scope was then taken out from the uterine cavity, sharp curettings was carried on with minimal to moderate amount of tissues retrieved. At the end of the procedure, all instruments were taken out of the patient uterine and vaginal cavity. The single tooth tenaculum was removed and homeostasis was assured using pressure,. The patient tolerated the procedure well and was transferred to the PACU in a stable condition.
--- NOTE | 2024-05-20 14:07 | PM.OP ---
Brief Operative Note Date of Service: 05/20/24 Pre-op diagnosis: Abnormal uterine bleeding, endometrial polyp by ultrasound Post-op diagnosis: same (Endometrial polyp) Procedure: Hysteroscopy D&C, Polypectomy Surgeon: Saulo Melgar MD Anesthesia: GLMA Was an Computing Systems Mechanic used for this Procedure?: No Estimated blood loss (mL): 0 Pathology: other (Endometrial Scrapping. Polyp) Condition: stable Disposition: PACU
[2024-05-20 14:10] VITALS: BP 134/67; PULSE 55; RESP 16; TEMP 36.1; O2SAT 96
[2024-05-20 14:15] VITALS: BP 129/69; PULSE 54; RESP 16; O2SAT 97
[2024-05-20 14:20] VITALS: BP 121/61; PULSE 53; RESP 16; O2SAT 97
[2024-05-20 14:25] VITALS: BP 112/65; PULSE 60; RESP 18; O2SAT 94
[2024-05-20 14:40] VITALS: BP 114/62; PULSE 60; RESP 18; TEMP 36.3; O2SAT 96
--- NOTE | 2024-05-20 15:01 | PC.NURSE ---
all discharge instructions given by julian guillory rn
== END 2024-05-20 15:08 | disposition home or self-care (01) ==
PROVIDERS: PCP Internal Medicine; Visit Provider Obstetrics & Gynecology
PROC: 0UDB8ZZ Extraction of Endometrium, Via Natural or Artificial Opening Endoscopic (ICD-10-PCS; CPT 58558; principal; 2024-05-20 13:30)
DX: N93.9 Abnormal uterine and vaginal bleeding, unspecified (principal); N84.0 Polyp of corpus uteri; N80.00 Endometriosis of the uterus, unspecified; Z88.5 Allergy status to narcotic agent
CPT/HCPCS: 58558; 81025; 88305; J1100; J1885; J2250; J2405; J2704; J3010

== ENCOUNTER → 2024-05-20 10:06 | Outpatient (BNV) | payer OTHER, SELFPAY | PROVIDERS: PCP Internal Medicine; Visit Provider Obstetrics & Gynecology | DX: N93.9 Abnormal uterine and vaginal bleeding, unspecified (principal); N84.0 Polyp of corpus uteri | CPT/HCPCS: 58558 ==

== ENCOUNTER 2024-06-09 13:21 | Outpatient (AMB) | payer OTHER, SELFPAY ==
--- NOTE | 2024-06-09 13:23 | A.OFFVIS_ITS ---
Vital Signs 06/09/24 13:27 BP 110/72 Intake Visit Reasons: post op Allergies hydrocodone [From VICODIN] Allergy (Unknown, Verified 05/20/24 11:46) NAUSEA & VOMITING quetiapine Adverse Reaction (Intermediate, Verified 05/20/24 11:46) sucide attempt Vicodin Allergy (Unknown, Uncoded 05/20/24 11:46) vomiting,nausea HPI Comments Details: The patient is presenting post hysteroscopy D&C no complaints minimal vaginal bleeding no feverishness chills or abdominal pain. The pathology showed the following: A. Endometrial polyp, resection: Fragments of benign endometrial polyp with features suggesting chronic endometritis, and benign proliferative endometrium; no atypia or carcinoma. B. Endometrium, curettage: Benign proliferative endometrium, possible benign polyp fragments, and benign endocervical glandular mucosa; no atypia or carcinoma. Comment: Chronic endometritis may be due to polyps The following workup was done.: H&H= 14.5/42.2 TSH, prolactin, hCG, GC and chlamydia were negative. Testosterone total and free and 17 hydroxyprogesterone within normal Co testing was done was negative. Mammogram was BI-RADS 1 Pelvic ultrasound showed the following: The uterus is anteverted and measures 9.1 x 6.0 x 6.2 cm. Double wall endometrial thickness is 19 mm. Possible endometrial polyp measures 1.7 x 0.6 x 0.8 cm. Nabothian cysts. No significant free fluid. Right ovary measures 3.0 x 2.4 x 1.8 cm, volume 6.6 mL. Left ovary measures 3.4 x 1.4 x 2.3 cm, volume 5.6 mL. Bilateral ovaries are unremarkable. [facility] Medical History Hx of Tobacco use disorder Panic attacks Anxiety Depression GERD (gastroesophageal reflux disease) Surgical History Hx of wisdom tooth extraction No history of previous surgery Family History Mother History of breast lump removal Breast cancer Father No problems noted. 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 Hearing needs: No Vision needs: Yes (glasses) Review of Systems Const All systems reviewed & are unremarkable except as noted in HPI and below Reports as per HPI and Reports no additional complaints GI Reports no additional complaints Reports no additional complaints Physical Exam Vital Signs: Last Vital Signs BP 110/72 06/09/24 13:27 Assessment & Plan Assessment & Plan (1) PCOS (polycystic ovarian syndrome): Code(s): E28.2 - Polycystic ovarian syndrome Category: Medical Plan: Discussed with the patient the results of her blood work included TSH, prolactin, testosterone, 17 hydroxyprogesterone . Explained to the patient that she has a diagnosis of PCOS. D/w the patient the association of PCOS with an increase in the risk of diabetes or pre diabetes, heart disease, hypercholesterolemia and metabolic syndrome, endometrial hyperplasia and/or cancer if untreated and an increase in the risk of breast cancer. Recommended for the patient the following: -To call her pcp to screen for cardiovascular risk and diabetes with FBS and 2 hr GTT after 75 g OGTT, in addition to cholesterol, lipids, HDL and LDL. -Instructions given to patient to increase exercise combined with dietary changes reduce the risk of diabetes, explained to the patient that reduction in body weight has been associated with improved rate and decreased hirsutism as well as improvement in glucose tolerance and lipid levels -For her Menstrual cycle control: Discussed with the patient the following options of treatment : Combination low-dose hormonal contraceptives are recommended as the primary treatment for menstrual disorder Or Progestins: Cyclic progesterone versus Mirena IUD No studies have addressed the long-term use of depot medroxyprogesterone acetate and intermittent oral medroxyprogesterone acetate to treat hirsutism. The regimen of cyclic oral progestin therapy or progestin-containing intrauterine devices that most effectively prevent endometrial cancer in women with PCOS is unknown. Progestin-only contraceptives or progestin-containing intrauterine devices are an alternative for endometrial protection, but they are associated with abnormal bleeding patterns in 50?89% of users After discussion all the pros and cons risks benefits of each were discussed with the patient, the patient decided to proceed with Mirena IUD so a more detailed discussion was carried on including mechanism of action, risks (infection, uterine perforation, failure with ectopic , septic AB, ovarian cyst and pelvic pain, increased breast cancer risk and others) benefits (efficient contraceptive method, others), GC/CG were taken recently were negative and the patient was asked to call day one of next cycle for IUD insertion. -discussed with the patient different options of treatment of Hirsutism refer to reproductive endocrinology for further management Orders: Referrals Infertility Reproductive Referral (female) L68.0 - Hirsutism Coding Level of Care Code Est Pt Level 3 (60388) Diagnoses PCOS (polycystic ovarian syndrome) E28.2
[2024-06-09 13:27] VITALS: BP 110/72
== END 2024-06-09 14:33 | disposition home or self-care (01) ==
PROVIDERS: PCP Internal Medicine; Visit Provider Obstetrics & Gynecology
DX: E28.2 Polycystic ovarian syndrome (principal)
CPT/HCPCS: 99213

== ENCOUNTER → 2024-06-09 13:21 | Outpatient (BNVA) | payer OTHER, SELFPAY | PROVIDERS: PCP Internal Medicine; Visit Provider Obstetrics & Gynecology ==

== ENCOUNTER 2024-07-28 08:08 | Outpatient (AMB) | payer OTHER, SELFPAY ==
--- NOTE | 2024-07-28 08:12 | MHC.OFFVIS ---
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 Present (Leana Nguyen JARETH) Accompanied by: Self / Same As Patient Allergies hydrocodone [From VICODIN] Allergy (Unknown, Verified 07/28/24 08:26) NAUSEA & VOMITING quetiapine Adverse Reaction (Intermediate, Verified 07/28/24 08:26) sucide attempt Vicodin Allergy (Unknown, Uncoded 07/28/24 08:26) vomiting,nausea HPI Comments Details: Presenting for Mirena IUD insertion [facility] Medical History Hx of Tobacco use disorder Panic attacks Anxiety Depression GERD (gastroesophageal reflux disease) Surgical History Hx of wisdom tooth extraction No history of previous surgery Family History Mother History of breast lump removal Breast cancer Father No problems noted. 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 The following possible complications were discussed with the patient: Intrauterine , Ectopic , Sepsis, Pelvic Infection, Irregular Bleeding and Amenorrhea, Perforation, Expulsion, Ovarian Cysts, Breast Cancer, The following adverse effects were discussed with the patient: alteration of menstrual bleeding pattern, including: unscheduled uterine bleeding decreased uterine bleeding increased scheduled uterine bleeding female genital tract bleeding ,amenorrhea , genital discharge , vulvovaginitis , breast pain , benign ovarian cyst and associated complications , dysmenorrhea , Gastrointestinal disorders abdominal/pelvic pain, headache/migraine , back pain , acne , depression Alternative options were discussed with the patient including but not limited: control pills, patch, NuvaRing, Depo-medroxyprogesterone acetate, Nexplanon, copper IUD, sterilization, vasectomy, others The procedure was explained in detail to patient , at the end patient signed the informed consent obtained. A no touch technique was used throughout the procedure. A speculum was placed into vagina and cervix was cleaned with betadine). A tenaculum was placed. A plastic sound was advanced through the external and internal os until it reached the fundus of the uterus, the depth was 8 cm. The sound was then withdrawn. The IUD was loaded in a sterile manner and advanced into position. The string was visualized and cut to 3 cm. Tenaculum site hemostatic. All instruments removed from vagina. Patient tolerated the procedure well. NO complications were noted. Patient was instructed to call for fever over 100.4, significant pain unrelieved by Motrin, IUD expulsion, heavy bleeding, or abnormal discharge. In addition, the following clinical considerations were discussed with the patient to call for removal: A stroke or heart attack ,Very severe or migraine headaches ,Unexplained fever ,Yellowing of the skin or whites of the eyes, as these may be signs of serious liver problems , or suspected , Pelvic pain or pain during sex ,HIV positive seroconversion in herself or her partner , Possible exposure to sexually transmitted infections Unusual vaginal discharge or genital sores , severe vaginal bleeding or bleeding that lasts a long time, or if she misses a menstrual period, Inability to feel Mirena's threads Counseled the patient that the IUD does not protect against STI's, recommended use of condoms for the first 7 days post insertion and explained to the patient that condoms are recommended for patients at risk for sexually transmitted infections. Informed the patient that Mirena IUD is FDA approved for 8 years for contraception for 5 years for the treatment of heavy menses Instructed the patient to schedule a Follow up appointment in 4 to 6 weeks following insertion. This note was generated with a voice recognition program. Some errors may have been overlooked during the review of this note. Sometimes these errors may affect the content or meaning of a given sentence. [id number] Insertion Procedure code (CPT) selection complete Office Meds Mirena 21 mcg/24 hr (up to 8 years) 52 mg intrauterine device Performing Provider: Saulo Melgar MD [place] [facility] [place] [facility] Documented (not given) by: Saulo Melgar MD on 07/28/24 08:32 Dose Route Admin Location Dispensed Lot Number Expiration Date [facility] [employer] 1 device intrauterine ea Assessment & Plan Assessment & Plan (1) Abnormal uterine bleeding (AUB): Code(s): N93.9 - Abnormal uterine and vaginal bleeding, unspecified Category: Medical Plan: Mirena IUD inserted, see procedure Orders: Orders AMB IUD Insertion/Removal - Practice Supplied Today Z30.430 - Encounter for insertion of intrauterine contraceptive device Medications: New Mirena (levonorgestrel) 1 device intrauterine ONCE 1 ea 0RF Abnormal uterine bleeding NS Z30.430 - Encounter for insertion of intrauterine contraceptive device Coding Level of Care Code Procedure Only Diagnoses Abnormal uterine bleeding (AUB) N93.9 CPT Codes Details - CPT: 40524-OZG Insertion ([id number])
[2024-07-28 08:25] VITALS: BMI 29.3
== END 2024-07-28 08:43 | disposition home or self-care (01) ==
LOC: HO.HWS 08:08
PROVIDERS: PCP Internal Medicine; Visit Provider Obstetrics & Gynecology
DX: Z30.430 Encounter for insertion of intrauterine contraceptive device (principal); Z32.02 Encounter for pregnancy test, result negative; N93.9 Abnormal uterine and vaginal bleeding, unspecified
CPT/HCPCS: 58300

== ENCOUNTER → 2024-07-28 08:08 | Outpatient (BNVA) | payer OTHER, SELFPAY | PROVIDERS: PCP Internal Medicine; Visit Provider Obstetrics & Gynecology | DX: Z30.430 Encounter for insertion of intrauterine contraceptive device (principal); N93.9 Abnormal uterine and vaginal bleeding, unspecified | CPT/HCPCS: 58300; 81025; J7298 ==

== ENCOUNTER 2024-08-12 13:44 | Outpatient (REF) | payer OTHER, SELFPAY | END 2024-08-12 13:45 | disposition home or self-care (01) | LOC: HO.US 13:44 | PROVIDERS: PCP Internal Medicine; Visit Provider Obstetrics & Gynecology | DX: R10.2 Pelvic and perineal pain (principal) | CPT/HCPCS: 76830; 76856 ==

== ENCOUNTER 2024-09-07 08:06 | Outpatient (REF) | payer OTHER, SELFPAY ==
[2024-09-08 07:04] LABS: CT PCR NOT DETECTED (Not Detect.); NG PCR NOT DETECTED (Not Detect.)
== END 2024-09-07 08:07 | disposition home or self-care (01) ==
LOC: HO.LNP 08:06
PROVIDERS: PCP Internal Medicine; Visit Provider Obstetrics & Gynecology
DX: Z30.430 Encounter for insertion of intrauterine contraceptive device (principal)
CPT/HCPCS: 58300; 58301; 87491; 87591; J7298

== ENCOUNTER 2024-09-07 08:14 | Outpatient (AMB) | payer OTHER, SELFPAY ==
[2024-09-07 08:11] VITALS: BP 118/66; BMI 28.5
--- NOTE | 2024-09-07 08:11 | MHC.OFFVIS ---
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 No complaints. Last Pap/HPV was negative in 02/24 Last Mammogram was BI-RADS 1 in 03/28 The patient called a month ago complaining of pelvic pain was sent for a pelvic ultrasound, the report is not available yet. [facility] Medical History Hx of Tobacco use disorder Panic attacks Anxiety Depression GERD (gastroesophageal reflux disease) Surgical History Hx of wisdom tooth extraction No history of previous surgery Family History Mother History of breast lump removal Breast cancer Father No problems noted. 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 Hearing needs: No Vision needs: Yes (glasses) Female Reproductive History Menstrual control method: progestin IUCD Date of last pap smear: 02/11/23 Date of Mammogram: 03/18/24 Review of Systems Const All systems reviewed & are unremarkable except as noted in HPI and below Card Reports as per HPI Resp Reports as per HPI GI Reports as per HPI and Reports no additional complaints Reports as per HPI Physical Exam Const General: cooperative, healthy appearing and comfortable Chest Chest palpation & inspection: normal inspection of the chest and normal palpation of entire chest wall Breast/axilla inspection: normal inspection of the breasts and normal inspection of the axillae Breast/axilla palpation: normal palpation of the breasts, normal palpation of the axillae and no axillary lymphadenopathy Resp Effort & Inspection: normal respiratory effort Auscultation: clear to auscultation bilaterally Percussion: percussion normal Cardio Palpation: normal PMI Rate: regular rate Rhythm: regular rhythm Heart sounds: no murmurs and no rubs Peripheral pulses: Peripheral pulses 2+ throughout GI Inspection: Yes normal to inspection Palpation (GI): Soft to palpation, nontender, no guarding, not rigid and No hepatosplenomegaly present Percussion: Yes normal to percussion Auscultation: normal bowel sounds Rectal Exam - Female: deferred General: Yes bladder normal to palpation External Female Exam: No lesion Speculum Exam - Vagina: normal appearance of the vagina, normal palpation, normal vaginal discharge and not erythematous Speculum Exam - Cervix: normal appearance of the cervix, normal palpation and Other cervical findings present (IUD low-lying treating to the cervical os) Bimanual exam- vagina & uterus: normal bimanual exam, normal palpation, uterine size normal, bladder normal to palpation, consistency normal and normal palpation Bimanual Exam- Adnexa, other: normal adnexae, no masses and no tenderness Office Procedures IUD Insert/Removal Details Details: The patient is presenting for IUD removal and IUD reinsertion. Her last menstrual period was within the last 5 days, Urine test was done in the office and was negative; All the contraindications were excluded. The following possible complications were discussed with the patient: Intrauterine , Ectopic , Sepsis, Pelvic Infection, Irregular Bleeding and Amenorrhea, Perforation, Expulsion, Ovarian Cysts, Breast Cancer. The following adverse effects were discussed with the patient: alteration of menstrual bleeding pattern, including: unscheduled uterine bleeding decreased uterine bleeding increased scheduled uterine bleeding female genital tract bleeding ,amenorrhea , genital discharge , vulvovaginitis , breast pain , benign ovarian cyst and associated complications , dysmenorrhea , Gastrointestinal disorders abdominal/pelvic pain, headache/migraine , back pain , acne , depression Alternative options were discussed with the patient including but not limited: control pills, patch, NuvaRing, Depo-medroxyprogesterone acetate, Nexplanon, copper IUD, sterilization, vasectomy, others The procedure was explained in detail to patient , at the end patient signed the informed consent obtained. Alternative options were discussed with the patient The patient signed the consent and agreed with the plan; all questions answered. Urine test was done in the office and was negative Preop dx: Requesting IUD removal and Reinsertion Op: IUD removal and Mirena insertion Post op dx: same EBL= 10 cc Procedure: The patient was put in the dorsal lithotomy position a speculum was inserted in the vagina the IUD thread identified. Using a Debi clamp the thread was grasped and the IUD pulled out with no complications. A no touch technique was used throughout the procedure. A speculum was placed into vagina and cervix was cleaned with betadine). A tenaculum was placed. A plastic sound was advanced through the external and internal os until it reached the fundus of the uterus, the depth was 8 cm. The sound was then withdrawn. The IUD was loaded in a sterile manner and advanced into position. The string was visualized and cut to 3 cm. Tenaculum site hemostatic. All instruments removed from vagina. Patient tolerated the procedure well. NO complications were noted. Patient was instructed to call for fever over 100.4, significant pain unrelieved by Motrin, IUD expulsion, heavy bleeding, or abnormal discharge. In addition, the following clinical considerations were discussed with the patient to call for removal: A stroke or heart attack ,Very severe or migraine headaches ,Unexplained fever ,Yellowing of the skin or whites of the eyes, as these may be signs of serious liver problems , or suspected , Pelvic pain or pain during sex ,HIV positive seroconversion in herself or her partner , Possible exposure to sexually transmitted infections Unusual vaginal discharge or genital sores , severe vaginal bleeding or bleeding that lasts a long time, or if she misses a menstrual period, Inability to feel Mirena's threads Counseled the patient that the IUD does not protect against STI's, recommended use of condoms for the first 7 days post insertion and explained to the patient that condoms are recommended for patients at risk for sexually transmitted infections. Follow up appointment made for 4 weeks following insertion. Date of removal in no more than five years for DUB treatment and 8 years for contraception from today?s date was d/w patient. This note was generated with a voice recognition program. Some errors may have been overlooked during the review of this note. Sometimes these errors may affect the content or meaning of a given sentence. [id number] Insertion [id number] Removal Procedure code (CPT) selection complete Office Meds Mirena 21 mcg/24 hr (up to 8 years) 52 mg intrauterine device Performing Provider: Saulo Melgar MD [place] [facility] [place] [facility] Documented (not given) by: Saulo Melgar MD on 09/07/24 08:39 Dose Route Admin Location Dispensed Lot Number Expiration Date [facility] Billet Header 1 device intrauterine ea Assessment & Plan Assessment & Plan (1) Well woman exam: Code(s): Z01.419 - Encounter for gynecological examination (general) (routine) without abnormal findings Category: Medical Plan: Cotesting not indicated this year. Instructions given the patient to schedule next screening Mammogram in 03/29 . Counseled the patient about the recommended dietary allowance of 1000 mg of Calcium & 600 IU of vitamin D. The patient was instructed to perform monthly self-breast exams and to schedule an annual exam in a year; All questions answered and the patient verbalized understanding. Instructed the patient to schedule annual exam in a year (2) Malpositioned IUD: Code(s): T83.32XA - Displacement of intrauterine contraceptive device, initial encounter Category: Medical Plan: GC/CT taken. Urine test done in the office was negative. Discussed with the patient the finding on pelvic exam, low-lying IUD, recommended removal and reinsertion, the patient agreed. Mirena IUD removal/reinsertion done, see procedure note Orders: Orders AMB IUD Insertion/Removal - Practice Supplied Today T83.32XA - Displacement of intrauterine contraceptive device, initial encounter Medications: New Mirena (levonorgestrel) 1 device intrauterine ONCE 1 ea 0RF IUD removal/insertion NS T83.32XA - Displacement of intrauterine contraceptive device, initial encounter Coding Level of Care Code Est Pt Prev Care 40-64y(34987) Diagnoses Well woman exam Z01.419 Malpositioned IUD T83.32XA CPT Codes Details - CPT: 23856-RNR Insertion ([id number]) Details - CPT: 98491-VPL Removal ([id number]) Comment IUD removal and reinsertion
--- OUTSIDE RECORDS SUMMARY | 2024-09-13 16:23 | XMS_ITS | Continuity of Care Document ---
Author Organization [facility] Address [address] [place] [phone]- Care Team Providers Care Firing Pin Gauger Name Role Phone Sally MEDINA, Sanjay Dennison Primary Care Physic naomi Encounter [facility] Date(s): 07/28/24 - 08/27/24 [facility] [address] [place] [phone]- Encounter Type: Triage Allergies, Adverse Reactions, Alerts Substance Criticality Severity Reaction Reaction Severity Status Vicodin Active Medications dexamethasone 1 mg oral tablet 1 tablet = 1 mg, By Mouth, Once, to be taken at 11pm, # 1 tablet, 0 Refills, Soft Stop, 07/17/24 4:35:00 PM EDT, [id number], Partial fill upon patient request if the prescription is for a schedule II opioid drug., 153, cm, 07/15/24 16:08:00 EDT, Height, 75.7, kg, 12/09/23 15:28:00 EST, Dry Weight Start Date: 07/17/24 Status: Ordered Quantity: 1.0 Unit: tablet Repeat number: 1 predniSONE 10 mg oral tablet 2 tablet = 20 mg, By Mouth, Daily, # 10 tablet, 0 Refills, Maintenance, 12/09/23 4:52:00 PM EST, Tablet, [id number], Partial fill upon patient request if the prescription is for a schedule II opioid drug., 153, cm, 12/09/23 15:21:00 EST, Height, 75.7, kg, 12/09/23 15:28:00 EST, Dry Weight Start Date: 12/09/23 Stop Date: 12/14/23 Status: Ordered Quantity: 10.0 Unit: tablet Repeat number: 1 Problem List Condition Confirmation Course Effective Dates Status Health St [facility] Informant Obese class I Confirmed Active Social History Social History Type Response Smoking Status 5-9 cigarettes (betw een 1/4 to 1/2 pack)/day in last 30 days entered on: 12/09/23 Sex Sex Representation Female (finding) Patient Care team information Care Team Personnel Name: Sally MEDINA, Sanjay Dennison Position: Reference Physician Member Role: PCP Address: [address] [place], [place] [address] Telecom: Care Team Related Persons Name: GALILEA CRABTREE Insurance Providers Guarantor name: ITZEL Health Plan Information #: 1 Payer: [facility] [place] FF NON P HMO Member Number: ITZEL Policy Number: NA Group Number: [id number]
--- OUTSIDE RECORDS SUMMARY | 2024-09-13 16:23 | XMS_ITS | Continuity of Care Document ---
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 [place], [place] [address] Telecom: Care Team Related Persons Name: GAILLEA CRABTREE Insurance Providers Guarantor name: ITZEL Health Plan Information #: 1 Payer: [facility] FF NON P HMO Member Number: ITZEL Policy Number: NA Group Number: NA
== END 2024-09-07 08:47 | disposition home or self-care (01) ==
PROVIDERS: PCP Internal Medicine; Visit Provider Obstetrics & Gynecology
DX: Z01.419 Encounter for gynecological examination (general) (routine) without abnormal findings (principal); Z30.433 Encounter for removal and reinsertion of intrauterine contraceptive device
CPT/HCPCS: 58300; 58301; 99396

== ENCOUNTER 2024-09-14 09:11 | Outpatient (REF) | payer OTHER, SELFPAY ==
[2024-09-14 11:07] LABS: Influenza A PCR NEGATIVE (Negative); Influenza B PCR NEGATIVE (Negative); Resp Syncy Virus RNA Qual PCR NEGATIVE (Negative); SARS COV2 PCR INHOUSE POSITIVE (Negative)
== END 2024-09-14 09:12 | disposition home or self-care (01) ==
LOC: HO.LAB 09:11
PROVIDERS: PCP Internal Medicine; Visit Provider Internal Medicine
DX: R43.9 Unspecified disturbances of smell and taste (principal); F41.1 Generalized anxiety disorder; J06.9 Acute upper respiratory infection, unspecified
CPT/HCPCS: 0241U

== ENCOUNTER 2024-09-14 09:11 | Outpatient (AMB) | payer OTHER, SELFPAY ==
--- NOTE | 2024-09-14 09:11 | MHC.PC.OV ---
Intake Visit Reasons: 2 mo f/u Intake Note: Patient is here to follow up on GERD, BRENDAN. 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 per policy Accompanied by: Self / Same As Patient Allergies hydrocodone [From VICODIN] Allergy (Unknown, Verified 09/14/24 09:35) NAUSEA & VOMITING quetiapine Adverse Reaction (Intermediate, Verified 09/14/24 09:35) sucide attempt Vicodin Allergy (Unknown, Uncoded 09/14/24 09:35) vomiting,nausea Medication List - Last Reconciled 09/14/24 by Sanjay Zavala MD aripiprazole (Abilify) 2 mg PO BEDTIME budesonide-formoterol 80-4.5 mcg/actuation 2 puffs PO BID clonazepam 0.5 mg PO BEDTIME omeprazole 20 mg PO DAILY paroxetine HCl 20 mg PO DAILY Tobacco use date assessed: 03/15/24 Dental Screening Dental Screen Date: 03/15/24 HPI 2 mo f/u HPI Details 44-year-old female wishes to discuss her chronic medical conditions via tele health. Patient has the sniffles, postnasal drip and headache. She wishes to be tested for COVID and other viral illness. She is compliant with her regular medications. Patient was happy to report that she has quit smoking for the past 2 weeks. Compliant with Abilify and other medications. She needs a refill on the same. Since her last office visit patient had a gynecological exam and an intrauterine polyp was removed. [facility] Medical History Hx of Tobacco use disorder Panic attacks Anxiety Depression GERD (gastroesophageal reflux disease) Surgical History Hx of wisdom tooth extraction Family History Mother History of breast lump removal Breast cancer Father No problems noted. 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 Eliseo Castro, Karen Wallace, Sivakumar Marques and colleagues, with an educational alan from [employer]. Physical exam (Primary Care) Tobacco/Smoking Status: Tobacco use Status Tobacco use date assessed 03/15/24 09/14/24 09:14 Patient Tobacco Use Status Former Tobacco user (09/14/24 09:14 ) Tobacco use type Cigarette 09/14/24 09:14 e-Cigarette/Vaping Use Never Used 09/14/24 09:14 Thrive Assessment: Date of Thrive Assessment Date Thrive assessed 03/15/24 09/14/24 09:14 Telehealth Telehealth [facility]health [facility] Location of provider rendering services: practice address Location of patient: address on file Patient Identification confirmed using: Name, : Yes Telehealth method: voice only Patient verbally consented to treatment: Yes Patient verbally consented to billing insurance company: Yes Patient informed of any privacy concerns related to visit: Yes Minutes spent on Phone/Video with Pt.: 15 Coding Level of Care Code Tele Est Pt Level 4 (73887) Complex EM visit Add On G2211 Diagnoses Generalized anxiety disorder F41.1 URI (upper respiratory infection) J06.9 Assessment & Plan Assessment & Plan (1) Generalized anxiety disorder: Code(s): F41.1 - Generalized anxiety disorder Category: Medical Plan: Patient is still waiting for a therapist. She is compliant with all her medications. Symptoms are under control. (2) URI (upper respiratory infection): Code(s): J06.9 - Acute upper respiratory infection, unspecified Category: Medical Plan: Self-limiting illness. No antibiotics needed. Testing for COVID, influenza and RSV provided. Orders: Orders SARS-CoV2/FLU/RSV Today R43.9 - Unspecified disturbances of smell and taste Medications: Refilled clonazepam administer 30 minutes before bedtime 0.5 mg PO BEDTIME 30 tabs 0RF
== END 2024-09-14 10:57 | disposition home or self-care (01) ==
LOC: HO.HMCH 09:11
PROVIDERS: PCP Internal Medicine; Visit Provider Internal Medicine
DX: F41.1 Generalized anxiety disorder (principal); J06.9 Acute upper respiratory infection, unspecified

== ENCOUNTER 2024-09-19 14:16 | Outpatient (REF) | payer OTHER, SELFPAY ==
[2024-09-20 14:03] LABS: CT PCR NOT DETECTED (Not Detect.); NG PCR NOT DETECTED (Not Detect.)
== END 2024-09-19 14:17 | disposition home or self-care (01) ==
LOC: HO.LNP 14:16
PROVIDERS: PCP Internal Medicine; Visit Provider Obstetrics & Gynecology
DX: R10.2 Pelvic and perineal pain (principal)
CPT/HCPCS: 87086; 87491; 87591

== ENCOUNTER 2024-09-19 14:16 | Outpatient (AMB) | payer OTHER, SELFPAY ==
[2024-09-19 14:23] VITALS: BP 118/66; BMI 28.7
--- NOTE | 2024-09-19 14:23 | A.OFFVIS_ITS ---
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 No associated vaginal discharge, urinary or GI symptoms, no fever or chills PFSH Medical History Hx of Tobacco use disorder Panic attacks Anxiety Depression GERD (gastroesophageal reflux disease) Surgical History Hx of wisdom tooth extraction Family History Mother History of breast lump removal Breast cancer Father No problems noted. 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 Pelvic ultrasound ordered. Instructions given the patient schedule ultrasound and a follow-up appointment within 1-2 days. All questions answered, the patient verbalized understand Orders: Orders US pelvic and transvaginal Today R10.2 - Pelvic and perineal pain Urine Culture Today R10.2 - Pelvic and perineal pain CT NG by PCR Today R10.2 - Pelvic and perineal pain Coding Level of Care Code Est Pt Level 3 (21948) Diagnoses Pelvic cramping R10.2
== END 2024-09-19 15:18 | disposition home or self-care (01) ==
PROVIDERS: PCP Internal Medicine; Visit Provider Obstetrics & Gynecology
DX: R10.2 Pelvic and perineal pain (principal)
CPT/HCPCS: 99213

== ENCOUNTER 2024-09-19 15:06 | Outpatient (REF) | payer OTHER, SELFPAY ==
--- NOTE | ~2024-09-19 | US_ITS ---
EXAMINATION: US PELVIS CLINICAL INFORMATION: Pelvic and perineal pain, recent IUD insertion 2 weeks ago as previous IUD was malrotated. COMPARISON: 05/06/2024, 08/12/2024 TECHNIQUE: Ultrasound of the pelvis is performed using both transabdominal and transvaginal transducers along with Doppler. Transvaginal imaging is performed due to inadequate visualization transabdominally. FINDINGS: The anteverted uterus measures 7.7 x 3.7 x 5.8 cm Endometrial thickness with IUD is approximately 3 mm, although visualization of the endometrium is limited due to shadowing from the IUD. IUD in place within the endometrial cavity. Left ovary measures 2.9 x 2.0 x 1.9 cm, volume 5.2 mL. Right ovary measures 3.0 x 2.4 x 2.1 cm, volume 7.9 mL. Limited visualization due to bowel gas and body habitus. No significant free fluid. 1.4 x 1.1 x 1.4 cm right adnexal cyst was not identified on the prior exam. US/US pelvic and transvaginal IMPRESSION: 1. Endometrial thickness with IUD is approximately 3 mm, although visualization of the endometrium is limited due to shadowing from the IUD. IUD in place within the endometrial cavity. 2. A 1.4 cm right adnexal cyst was not identified on the prior exam. This study was presented to me on 09/20/2024 for interpretation. PSA staff will provide results to referring provider at this time. Electronically signed by: Morenita Farr MD 09/20/2024 08:46 AM [facility] [place]
== END 2024-09-19 15:07 | disposition home or self-care (01) ==
LOC: HO.US 15:06
PROVIDERS: PCP Internal Medicine; Visit Provider Obstetrics & Gynecology
DX: R10.2 Pelvic and perineal pain (principal)
CPT/HCPCS: 76830; 76856

== ENCOUNTER 2024-09-20 09:03 | Outpatient (AMB) | payer OTHER, SELFPAY ==
--- NOTE | 2024-09-20 09:04 | A.OFFVIS_ITS ---
Intake Visit Reasons: Ultrasound results Allergies hydrocodone [From VICODIN] Allergy (Unknown, Verified 09/19/24 14:24) NAUSEA & VOMITING quetiapine Adverse Reaction (Intermediate, Verified 09/19/24 14:24) sucide attempt Vicodin Allergy (Unknown, Uncoded 09/14/24 09:35) vomiting,nausea HPI Comments Details: The patient is scheduled tele health visit for ultrasound follow-up done yesterday regarding pelvic cramping after IUD insertion. GC/CT pending. IMPRESSION: 1. Endometrial thickness with IUD is approximately 3 mm, although visualization of the endometrium is limited due to shadowing from the IUD. IUD in place within the endometrial cavity. 2. A 1.4 cm right adnexal cyst was not identified on the prior exam. [facility] Medical History Hx of Tobacco use disorder Panic attacks Anxiety Depression GERD (gastroesophageal reflux disease) Surgical History Hx of wisdom tooth extraction Family History Mother History of breast lump removal Breast cancer Father No problems noted. 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 Hearing needs: No Vision needs: Yes (glasses) Review of Systems Const All systems reviewed & are unremarkable except as noted in HPI and below Reports as per HPI and Reports no additional complaints GI Reports no additional complaints Reports no additional complaints Telehealth Telehealth Telehealth Platform: Telephone Location of provider rendering services: practice address Location of patient: address on file Patient Identification confirmed using: Name, : Yes Telehealth method: video Patient verbally consented to treatment: Yes Patient verbally consented to billing insurance company: Yes Patient informed of any privacy concerns related to visit: Yes Assessment & Plan Assessment & Plan (1) Pelvic cramping: Comment: With Mirena IUD Code(s): R10.2 - Pelvic and perineal pain Category: Medical Plan: Discussed with the patient the finding of pelvic ultrasound, IUD in appropriate position with right adnexal cyst. Instructions given the patient to call in case of persistence or worsening of her pelvic cramping, fever above 100.4, heavy vaginal bleeding. Otherwise follow-up at her scheduled follow-up appointment on 10/19/2024. All questions answered, the patient verbalized understanding I spent a total of 20 minutes reviewing the chart, talking to the patient via video and documenting in the medical record. Coding Level of Care Code Tele Est Pt Level 3 (77221) Diagnoses Pelvic cramping R10.2
== END 2024-09-20 09:50 | disposition home or self-care (01) ==
LOC: HO.HWS 09:03
PROVIDERS: PCP Internal Medicine; Visit Provider Obstetrics & Gynecology
DX: R10.2 Pelvic and perineal pain (principal)
CPT/HCPCS: 99213

== ENCOUNTER 2024-11-24 12:43 | Outpatient (AMB) | payer OTHER, SELFPAY ==
--- NOTE | 2024-11-24 12:50 | MHC.OFFVIS ---
Vital Signs 11/24/24 12:52 Height 5 ft 2 in Weight 157 lb BMI 28.7 Intake Visit Reasons: IUD Check Computer Field Technician Required: No Information Interpreted: non-clinical & clinical Mimeographer: Mimeographer Present (Leana TEMPLETON) Accompanied by: Self / Same As Patient Allergies hydrocodone [From VICODIN] Allergy (Unknown, Verified 11/24/24 12:53) NAUSEA & VOMITING quetiapine Adverse Reaction (Intermediate, Verified 11/24/24 12:53) sucide attempt Vicodin Allergy (Unknown, Uncoded 11/24/24 12:53) vomiting,nausea Is last menstrual period known: No (mirena) HPI Comments Details: The patient is presenting for IUD check after 1 st period following IUD insertion. The patient has no complaints periods are normal, not painful, and flow is normal. The patient is checking the IUD thread periodically. [facility] Medical History Hx of Tobacco use disorder Panic attacks Anxiety Depression GERD (gastroesophageal reflux disease) Surgical History Hx of wisdom tooth extraction Family History Mother History of breast lump removal Breast cancer Father No problems noted. 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 Hearing needs: No Vision needs: Yes (glasses) Review of Systems Const All systems reviewed & are unremarkable except as noted in HPI and below Physical Exam Vital Signs: BMI result Body Mass Index 28.7 General: Yes no CVA tenderness External Female Exam: normal external appearance and normal appearance of the urethra Speculum Exam - Vagina: normal appearance of the vagina, normal palpation, no lesions and no masses Speculum Exam - Cervix: normal appearance of the cervix, normal palpation, no lesions, no masses, nontender and Other cervical findings present (iud string in place) Bimanual exam- vagina & uterus: normal bimanual exam, normal palpation, uterine size normal, normal palpation, uterine shape normal, No Cervical tenderness present and non-tender Bimanual Exam- Adnexa, other: normal adnexae Back/Spine/Pelvis Back: no CVA tenderness Assessment & Plan Assessment & Plan (1) IUD check up: Code(s): Z30.431 - Encounter for routine checking of intrauterine contraceptive device Category: Medical Plan: UPT done in the office was negative. Discussed with the patient the finding on physical exam, IUD string in place, the patient was reassured. Instructions given to patient to call in case of temperature above 100.4, severe cramping/pelvic pain, abnormal discharge or abnormal uterine bleeding or if she misses her menstrual cycle. Otherwise follow-up at her annual exam appointment. All questions answered, the patient verbalized understanding. Coding Level of Care Code Est Pt Level 3 (43646) Diagnoses IUD check up Z30.431
[2024-11-24 12:52] VITALS: BMI 28.7
--- OUTSIDE RECORDS SUMMARY | 2024-11-24 13:38 | XMS_ITS | Continuity of Care Document ---
Author Organization [facility] Address [address] [place] [id number]- Care Team Providers Care Life Guard Name Role Phone Sally MEDINA, Sanjay Dennison Primary Care Physic naomi Encounter [facility] Date(s): 07/15/24 - 11/10/24 [facility] [address] [place] [address]- Attending Physician: Beulah Loyola MD Admitting Physician: Beulah Loyola MD Referring Physician: Sanjay Zavala MD Encounter Type: Pre-OutPatient One Time Allergies, Adverse Reactions, Alerts Substance Criticality Severity [...] Quantity: 10.0 Unit: tablet Repeat number: 1 spironolactone 25 mg oral tablet 25 mg, 1, tablet, By Mouth, Daily, with meals, # 30 tablet, Refills 6, Tot. Refills 6, Maintenance,11/03/24 8:34:00 AM EST, Route to Pharmacy Electronically, [facility]/pharmacy #[id number], Partial fill upon patient request if the prescription is for a schedule II opioid drug., 153, cm, 11/03/24 8:09:00 EST, Height, 75.7, kg, 12/09/23 15:28:00 EST, Dry Weight Start Date: 11/03/24 Status: Ordered Quantity: 30.0 Unit: tablet Repeat number: 7 Indication: Hirsutism Problem List Condition Confirmation Course Effective Dates [...] Position: Reference Physician Member Role: PCP Address: [address] [place] [address] [address] Telecom: Care Team Related Persons Name: GALILEA CRABTREE Insurance Providers Guarantor name: ITZEL Health Plan Information #: 1 Payer: [facility] FF NON BHP HMO Member Number: [id number] Policy Number: NA Group Number: NA Health Plan Information #: 2 Payer: [facility] FF NON BHP HMO Member Number: [id number] Policy Number: NA Group Number: NA
--- OUTSIDE RECORDS SUMMARY | 2024-11-24 13:38 | XMS_ITS | Continuity of Care Document ---
Author Organization [facility] Address [address] [place] [id number]- Care Team Providers Care Gullet Slitter Name Role Phone Sally MEDINA, Sanjay Dennison Primary Care Physic naomi Encounter [facility] [id number] Date(s): 09/20/24 - 11/17/24 [facility] [address] [place] [id number]- Encounter Diagnosis Hirsutism(Discharge Diagnosis) - 10/07/24 PCOS (polycystic ovarian syndrome)(Discharge Diagnosis) - 10/07/24 Attending Physician: Sarah Han MD Admitting Physician: Sarah Han MD Referring Physician: Sanjay Zavala MD Encounter [...] 8:34:00 AM EST, Route to Pharmacy Electronically, [facility]/pharmacy #[id number], Partial fill upon patient request if the prescription is for a schedule II opioid drug., 153, cm, 11/03/24 8:09:00 EST, Height, 75.7, kg, 12/09/23 15:28:00 EST, Dry Weight Start Date: 11/03/24 Status: Ordered Quantity: 30.0 Unit: tablet Repeat number: 7 Indication: Hirsutism Problem List Condition Confirmation Course Effective Dates Status Health St atus Informant Obese class I Confirmed Active Diagnosis Diagnosis Type Effective Dates Health Status Cl inical Service Informant Hirsutism Discharge Diagnosis 10/07/24 PCOS (polycystic ovarian syndrome) Discharge Diagnosis 10/07/24 Social History Social History Type Response Smoking Status 5-9 cigarettes (betw een 1/4 to 1/2 pack)/day in last 30 days entered on: 12/09/23 Sex Sex Representation Female (finding) Patient Care team information Care Team Personnel Name: Sally MEDINA, Sanjay Dennison Position: Reference Physician Member Role: PCP Address: [address] [place] [address] [address] [place] [address] Telecom: Care Team Related Persons Name: GALILEA CRABTREE Insurance Providers Guarantor name: ITZEL Health Plan Information #: 1 Payer: [facility] FF NON BHP HMO Member Number: [id number] Policy Number: NA Group Number: ITZEL Health Plan Information #: 2 Payer: [facility] FF NON BHP HMO Member Number: [id number] Policy Number: NA Group Number: NA
== END 2024-11-24 13:09 | disposition home or self-care (01) ==
PROVIDERS: PCP Internal Medicine; Visit Provider Obstetrics & Gynecology
DX: Z30.431 Encounter for routine checking of intrauterine contraceptive device (principal); Z32.02 Encounter for pregnancy test, result negative
CPT/HCPCS: 99213

== ENCOUNTER → 2024-11-24 12:43 | Outpatient (BNVA) | payer OTHER, SELFPAY | PROVIDERS: PCP Internal Medicine; Visit Provider Obstetrics & Gynecology | DX: Z30.431 Encounter for routine checking of intrauterine contraceptive device (principal) | CPT/HCPCS: 81025 ==

== ENCOUNTER 2025-09-27 10:10 | Outpatient (AMB) | payer OTHER, SELFPAY ==
[2025-09-27 10:16] VITALS: BP 110/66; BMI 32.0
--- NOTE | 2025-09-27 10:16 | A.OFFVIS_ITS ---
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 No complaints. Last Pap/HPV was negative in 02/24 Last Mammogram was BI-RADS 1 in 03/28 [facility] Medical History Hx of Tobacco use disorder Panic attacks Anxiety Depression GERD (gastroesophageal reflux disease) Surgical History Hx of wisdom tooth extraction Family History Mother History of breast lump removal Breast cancer Father No problems noted. 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 Hearing needs: No Vision needs: Yes (glasses) Female Reproductive History Menstrual control method: progestin IUCD Date of last pap smear: 02/11/23 Date of Mammogram: 03/18/24 Review of Systems Const All systems reviewed & are unremarkable except as noted in HPI and below Card Reports as per HPI Resp Reports as per HPI GI Reports as per HPI and Reports no additional complaints Reports as per HPI Physical Exam Vital Signs: Last Vital Signs BP 110/66 09/27/25 10:16 BMI result Body Mass Index 32.0 Const General: cooperative, healthy appearing and comfortable Chest Chest palpation & inspection: normal inspection of the chest and normal palpation of entire chest wall Breast/axilla inspection: normal inspection of the breasts and normal inspection of the axillae Breast/axilla palpation: normal palpation of the breasts, normal palpation of the axillae and no axillary lymphadenopathy Resp Effort & Inspection: normal respiratory effort Auscultation: clear to auscultation bilaterally Percussion: percussion normal Cardio Palpation: normal PMI Rate: regular rate Rhythm: regular rhythm Heart sounds: no murmurs and no rubs Peripheral pulses: Peripheral pulses 2+ throughout GI Inspection: Yes normal to inspection Palpation (GI): Soft to palpation, nontender, no guarding, not rigid and No hepatosplenomegaly present Percussion: Yes normal to percussion Auscultation: normal bowel sounds Rectal Exam - Female: deferred General: Yes bladder normal to palpation External Female Exam: No lesion Speculum Exam - Vagina: normal appearance of the vagina, normal palpation, normal vaginal discharge and not erythematous Speculum Exam - Cervix: normal appearance of the cervix and normal palpation Bimanual exam- vagina & uterus: normal bimanual exam, normal palpation, uterine size normal, bladder normal to palpation, consistency normal and normal palpation Bimanual Exam- Adnexa, other: normal adnexae, no masses and no tenderness Assessment & Plan Assessment & Plan (1) Well woman exam: Code(s): Z01.419 - Encounter for gynecological examination (general) (routine) without abnormal findings Category: Medical Plan: Cotesting not indicated this year. Mammogram ordered. Counseled the patient about the recommended dietary allowance of 1000 mg of Calcium & 600 IU of vitamin D. The patient was instructed to perform monthly self-breast exams and to schedule an annual exam in a year; All questions answered and the patient verbalized understanding. Instructed the patient to schedule annual exam in a year Orders: Orders MM tomosynthesis screening BI Today Z12.31 - Encounter for screening mammogram for malignant neoplasm of breast Coding Level of Care Code Est Pt Prev Care 40-64y(27226) Diagnoses Well woman exam Z01.419
== END 2025-09-27 10:29 | disposition home or self-care (01) ==
PROVIDERS: PCP Internal Medicine; Visit Provider Obstetrics & Gynecology
DX: Z01.419 Encounter for gynecological examination (general) (routine) without abnormal findings (principal)
CPT/HCPCS: 99396; 99459